=== PATIENT | female | born 1970 | race Hispanic/Latino ===

== ENCOUNTER → 2017-08-13 | Day surgery (SDC) | payer OTHER ==
[~2017-08-13] VITALS: Ht 172.7 cm; Wt 117.9 kg
[~2017-08-13] MED LIST: BUSPIRONE HCL10 M1 PO; CITALOPRAM HBR10 MG PO; CITALOPRAM HBR20 MG PO; HYDROXYZINE HCL10 M1 PO; NAPROSYN500 M1 PO; ROBAXIN500 M1 PO; VISTARIL25 M1 PO
--- NOTE | 2017-08-26 14:59 | Operative Report ---
Operative/Inv Procedure Report Surgery Date: 08/13/17 Name of Procedure: Bilateral breast reduction Pre-Operative Diagnosis: Symptomatic breast hypertrophy Post-Operative Diagnosis: Same Estimated Blood Loss: scant (300) Surgeon/Depot Manager: Neno Mcguire MD Anesthesia: general endotracheal tube Operative/Procedure Note Note: Patient was counseled regards to the procedure the alternatives the risks and expected outcomes as relates to her request for surgical intervention to treat symptomatic macromastia. The patient was given a SPS informed consent which she has returned sign and has no questions regarding it. Specifically the patient was not guaranteed any cup size whatsoever was advised further weight loss in the future could result in too small for her liking and cannot be repaired without costs for [id number] segmentation. Possibility of complete or partial loss of the nipple areolar complex tissue or sensibility. We talked about open wounds which can be seen in the lower part of the breast and would need to heal over and additional 36 weeks leaving somewhat of a larger scar. Some bleeding hematoma seroma in addition to other items. Once she is was in agreement she was marked in the standing position for an inferior pedicle Nuñez pattern technique with the use of a tape measure. She signed informed consent. She was taken to the operating room placed supine on the table with the application of Venodyne boots general anesthesia was established intravenous antibiotics was given. The chest was prepped and draped in usual sterile fashion. De-epithelialization of a 10 cm wide inferior pedicle was carried out bilaterally. Skin flaps were developed removing sections of the pedicle both superiorly medially and laterally. Patient was put in the sitting position after temporary closure to assess symmetry which was good. Nipple areola complexes were located at that point and then 3 layer closure was carried out of all incisions.
== END ==
LOC: STS 07-22 07:00
DX: N62 Hypertrophy of breast (principal); M54.2 Cervicalgia; M54.5 Low back pain; M25.561 Pain in right knee; G47.33 Obstructive sleep apnea (adult) (pediatric)
CPT/HCPCS: 88305; J0690; J2250; Q9968